=== PATIENT | female | born 1965 | race Caucasian/White ===

== ENCOUNTER 2017-08-08 14:20 | Emergency (ER) | payer OTHER ==
[~2017-08-08] VITALS: Ht 170.2 cm; Wt 136.1 kg
[2017-08-08] MEDS ORDERED: IV NORMAL SALINE 1,000ML 1,000 ML IV SCH ×2 (14:33→17:27)
--- NOTE | 2017-08-08 15:08 | RAD ---
CT of the head without contrast, 08/08/2017: History: Syncope There is mild cerebral atrophy. The ventricles are within normal limits in size. There is no shift of the midline structures. There is no evidence of acute intracranial hemorrhage or mass effect. IMPRESSION: No acute intracranial abnormality is detected. PQRS Compliance Statement: One or more of the following individualized dose reduction techniques were utilized for this examination: 1. Automated exposure control 2. Adjustment of the mA and/or kV according to patient size 3. Use of iterative reconstruction technique
--- NOTE | 2017-08-08 15:09 | RAD ---
Portable chest, 08/08/2017: History: Fall, syncope A right Port-A-Cath extends into the inferior aspect of the superior vena cava. The heart size and pulmonary vascularity are normal. No pulmonary infiltrates are seen. There is no evidence of pleural fluid. IMPRESSION: 1. A right Port-A-Cath is in satisfactory position. 2. No acute cardiopulmonary abnormality is detected.
--- NOTE | 2017-08-08 15:11 | RAD ---
Left ankle, 3 views, 08/08/2017: History: Syncope, fall There is an oblique fracture of the distal fibula with only slight lateral displacement of the distal fracture fragment. No other fracture or dislocation is identified. There are mild degenerative changes at the tibiotalar articulation and moderate spurring at the talonavicular joint. There is mild subcutaneous edema. IMPRESSION: Acute distal fibular fracture
--- NOTE | 2017-08-08 15:19 | PHYS DOC ---
General Chief Complaint: ANKLE PROBLEM Stated Complaint: Lt. Ankle Injury Time Seen by MD: 14:33 Problems: History of Present Illness Initial Comments In the bathroom rectal pain very dehydrated awoke no confusion or postictal Allergies: Coded Allergies: No Known Drug Allergies (Unverified , 08/08/17) Orders, Labs, Meds EKG: Normal sinus rhythm 73 bpm, nonspecific T contour abnormality no ST segment elevation interpreted by me. PATIENT: ROSEY PINZON ACCOUNT: [id number] : 1965 LOCATION: ER AGE: 51 SEX: F EXAM STATUS: PRE ER ORD. PHYSICIAN: SUMMER CHIN DO REASON: syncope PROCEDURE: ANKLE LEFT 3V Left ankle, 3 views, 08/08/2017: History: Syncope, fall There is an oblique fracture of the distal fibula with only slight lateral displacement of the distal fracture fragment. No other fracture or dislocation is identified. There are mild degenerative changes at the tibiotalar articulation and moderate spurring at the talonavicular joint. There is mild subcutaneous edema. IMPRESSION: Acute distal fibular fracture DICTATED AND SIGNED BY: CHELLE VACA MD DATE: 08/08/17 1307 CC: SUMMER CHIN DO ~ PATIENT: ROSEY PINZON ACCOUNT: [id number] : 1965 LOCATION: ER AGE: 51 SEX: F EXAM STATUS: PRE ER ORD. PHYSICIAN: SUMMER CHIN DO REASON: syncope PROCEDURE: PORTABLE CHEST 1V Portable chest, 08/08/2017: History: Fall, syncope A right Port-A-Cath extends into the inferior aspect of the superior vena cava. The heart size and pulmonary vascularity are normal. No pulmonary infiltrates are seen. There is no evidence of pleural fluid. IMPRESSION: 1. A right Port-A-Cath is in satisfactory position. 2. No acute cardiopulmonary abnormality is detected. DICTATED AND SIGNED BY: CHELLE VACA MD DATE: 08/08/17 1506 CC: SUMMER CHIN DO ~ PATIENT: ROSEY PINZON ACCOUNT: [id number] : 1965 LOCATION: ER AGE: 51 SEX: F EXAM STATUS: PRE ER ORD. PHYSICIAN: SUMMER CHIN DO REASON: syncope PROCEDURE: CT HEAD WO CONTRAST CT of the head without contrast, 08/08/2017: History: Syncope There is mild cerebral atrophy. The ventricles are within normal limits in size. There is no shift of the midline structures. There is no evidence of acute intracranial hemorrhage or mass effect. IMPRESSION: No acute intracranial abnormality is detected. PQRS Compliance Statement: One or more of the following individualized dose reduction techniques were utilized for this examination: 1. Automated exposure control 2. Adjustment of the mA and/or kV according to patient size 3. Use of iterative reconstruction technique DICTATED AND SIGNED BY: CHELLE VACA MD DATE: 08/08/17 1504 CC: SUMMER CHIN DO ~ 1728: I discussed findings with the patient and her family at length. The patient has had 2 L of normal saline infused and still has not had the urge to urinate, she says she's had syncopal episodes from dehydration in the past and is confident that's what happened today. I advised her that the standard of care would be to admit her for observation and further evaluation to determine if there was a treatable cause or potentially life-threatening cause of her syncopal episode. She indicated that she would like to go home, I advised her that she could sign out AGAINST MEDICAL ADVICE if she chose. I discussed risks and benefits of staying versus leaving, potential benefits of staying were obviously early diagnosis and treatment of a potentially life saving condition. Risks of leaving were potential he loss of quality of life, and . She continues to indicate that she would like to leave AGAINST MEDICAL ADVICE she is of sound mind alert and oriented 3 and not altered with any substance. She exhibits UCAR capacity and will be allowed to sign herself out. She does request another liter of normal saline which I agree to. I also advised her she' ll need to be nonweightbearing until cleared by orthopedics, she refuses pain medications saying that she has some but we will apply an immobilizer here. I also advised her that a knee scooter would likely be her best option for ambulation after discharge but we will provide crutches in the meantime. Departure Time of Disposition: 17:31 Disposition: 07 AGAINST MEDICAL ADVICE Diagnosis: syncope, hypovolemia, left distal fibula fracture, Condition: IMPROVED Patient Instructions: Discharge Against Medical Advice, Fibular Fracture, Ankle , Adult, Undisplaced, Treated with Immobilization, RICE - Routine Care for Injuries, [id number] Additional Instructions: As discussed you have chosen to leave AGAINST MEDICAL ADVICE. Risks and benefits of staying versus leaving have been discussed with you and you understand you are welcome to return at any time for further evaluation and treatment. SMITH, see handout. Wear splint except when bathing. Nonweightbearing crutches only until and if you're able to obtain a knee scooter. You have refused pain medications opting for home meds. Aggressive hydration to prevent further dehydration and replaced current fluid losses. You will need to follow-up with an orthopedic surgeon. You may choose to follow-up with Dr. Stovall: [phone]. Call Friday morning to schedule a follow-up appointment. Follow-up with your doctor on Friday for recheck. Return to ED with new or changing symptoms. SUMMER CHIN DO Aug 08, 2017 15:18
--- NOTE | 2017-08-08 15:36 | EKG ---
[address] [address] Test Date: 2017-08-08 Test Time: 15:32:50 Pat Name: ROSEY PINZON Department: Room: Gender: F [employer]: DAREN : 1965 Requested By: SUMMER CHIN Order Number: [id number] Reading MD: Osbaldo Angeles MD Measurements Intervals Howe Rate: 73 P: 48 TN: 174 QRS: 26 QRSD: 84 T: 54 QT: 402 QTc: 447 Interpretive Statements SINUS RHYTHM Electronically Signed On 08-17-2017 15:32:41 [employer] by Osbaldo Angeles MD
[2017-08-08 15:51] LABS: BASO % 0 % (0-3); EOS % 0 % (0-3); HEMATOCRIT 34.6 % (36.0-47.0); HEMOGLOBIN 11.4 g/dL (12.0-15.5); LYMPH # 1.6 x10^3/uL (1.0-4.8); LYMPH % 12 % (24-48); MEAN CORPUSCULAR HEMOGLOBIN 32 pg (25-35); MEAN CORPUSCULAR HGB CONC 33 g/dL (31-37); MEAN CORPUSCULAR VOLUME 96 fL (79-100); MONO # 0.2 x10^3/uL (0.0-1.1); MONO % 2 % (0-9); NEUT # 11.8 x10^3uL (1.8-7.7); NEUT % 86 % (31-73); PLATELET COUNT 227 x10^3/uL (140-400); RED BLOOD COUNT 3.59 x10^6/uL (3.50-5.40); RED CELL DISTRIBUTION WIDTH 20.5 % (11.5-14.5); WHITE BLOOD COUNT 13.7 x10^3/uL (4.0-11.0)
[2017-08-08 16:09] LABS: ALBUMIN 3.2 g/dL (3.4-5.0); CALCIUM 9.1 mg/dL (8.5-10.1); CREATININE 1.1 mg/dL (0.6-1.0); DIRECT BILIRUBIN 0.1 mg/dL (0.0-0.2); GFR 52.4; POTASSIUM 3.3 mmol/L (3.5-5.1); TOTAL BILIRUBIN 0.5 mg/dL (0.2-1.0); TOTAL PROTEIN 6.5 g/dL (6.4-8.2)
[2017-08-08 16:19] LABS: BILIRUBIN,URINE NEG (NEG); CLARITY,URINE HAZY; COLOR,URINE AMBER; GLUCOSE,URINE NEG (NEG)
[2017-08-08 16:20] LABS: BACTERIA,URINE MOD /HPF (0-FEW); NITRITE,URINE NEG (NEG); SQUAMOUS EPITHELIAL CELL,UR MANY /LPF; UROBILINOGEN,URINE 1 mg/dL (0.2 mg/dL)
[2017-08-08 16:21] LABS: HYALINE CASTS, URINE MANY /HPF
[2017-08-08 19:15] VITALS: BP 113/61
[2017-08-08 23:59] LABS: % BANDS 3 % (0-9); % EOS 1 % (0-5); % LYMPHS 18 % (24-48); % MONOS 1 % (0-10); % SEGS 77 % (35-66)
[2017-08-09] LABS: ANISOCYTOSIS PRESENT; MICROCYTOSIS PRESENT; PLT ESTIMATE ADEQUATE (ADEQUATE)
== END 2017-08-08 19:25 | disposition left against medical advice (07) ==
LOC: ER 14:20
DX: R55 Syncope and collapse (principal); E86.1 Hypovolemia; S82.832A Other fracture of upper and lower end of left fibula, initial encounter for closed fracture; W19.XXXA Unspecified fall, initial encounter; Y93.89 Activity, other specified; Y99.8 Other external cause status; Y92.511 Restaurant or cafe as the place of occurrence of the external cause
CPT/HCPCS: 29515; 36415; 70450; 71045; 73610; 80048; 80076; 81001; 83605; 84484; 85007; 85025; 87086; 93005; 96360; 96361; 99285-25; J7030

== ENCOUNTER → 2019-06-03 | Outpatient (CLI) | payer OTHER ==
--- NOTE | 2019-06-04 10:09 | RAD ---
Bone Densitometry History: Ovarian cancer. On steroid therapy and an unspecified thyroid medication. Findings: Bone Densitometry was performed with dual photon absorption of the distal right forearm, lumbar spine and proximal right femur. Lumbar Spine: Bone density is 0.971 g/cm2 for L1-L4. T-score is -1.7. Z-score is -2.2. Right femoral neck: Bone density is 0.864 g/cm2. T-score is -0.7. Z-score is -1.0. Right forearm Bone mineral density is 0.394 g/sq cm. T score is 0.5. Z score is 0.8. IMPRESSION: Bone mineral density loss of between 10 percent to 25 percent compared to peak Young reference is noted involving the lumbar spine. Follow bone densitometry exam in 18-24 months is recommended if there is a change in therapy. World Health Organization definition of osteoporosis and osteopenia for women: normal equals T score at or above -1.0 standard deviations; osteopenia equals T score between -1.0 and -2.5 standard deviations; osteoporosis equals T score at or below -2.5 standard deviations. Electronically signed by: Keshav Jean MD (06/04/2019 10:06 AM) [facility]
== END | disposition home or self-care (01) ==
LOC: DXRAD 09:34
PROVIDERS: ATTEND Family Medicine
DX: Z13.820 Encounter for screening for osteoporosis (principal); M85.88 Other specified disorders of bone density and structure, other site
CPT/HCPCS: 77080; 77081